=== PATIENT | male | born 1945 | race Caucasian/White ===

== ENCOUNTER 2022-11-28 09:19 | Emergency (ER) | payer OTHER, MEDICARE ==
[2022-11-28 09:23] VITALS: BP 131/69; PULSE 62
[2022-11-28] MEDS ORDERED: Sodium Chloride 0.9% 10 ML Syringe FLUSH PRN (09:40)
[2022-11-28] MEDS ORDERED: Sodium Chloride 0.9% 1,000 ML IV SCH (09:45)
[2022-11-28] MEDS ORDERED: Iopamidol 612 MG/ML 100 ML Bottle IV PRN (09:47)
[2022-11-28] MEDS ORDERED: Sodium Chloride 0.9% 10 ML SDV FLUSH ONE (09:47)
[2022-11-28] MEDS ORDERED: Sodium Chloride 0.9% 100 ML IV SCH (10:00)
[2022-11-28] MEDS ORDERED: Acetaminophen/HYDROcodone 325-5 MG Tab PO ONE (11:08)
== END 2022-11-28 12:00 | disposition home or self-care (01) ==
LOC: JP.ED 09:19
DX: S22.31XA Fracture of one rib, right side, initial encounter for closed fracture (principal); I25.10 Atherosclerotic heart disease of native coronary artery without angina pectoris; E78.00 Pure hypercholesterolemia, unspecified; I10 Essential (primary) hypertension; Z95.5 Presence of coronary angioplasty implant and graft; Z79.82 Long term (current) use of aspirin; Z79.899 Other long term (current) drug therapy; V53.5XXA Driver of pick-up truck or van injured in collision with car, pick-up truck or van in traffic accident, initial encounter
CPT/HCPCS: 71260; 99284; A9270; J3490; J7030; Q9967